=== PATIENT | female | born 1945 | race Caucasian/White ===

== ENCOUNTER → 2016-10-10 | Outpatient (CLI) | payer OTHER ==
[~2016-10-10] MED LIST: ADULT LOW DOSE81 MG PO; ANTIVERT25 MG PO; APAP/CODEINE ELI5 M1 PO; B COMPLEX-VITA1 EACH PO; CIPROFLOXACIN500 M3 PO; COLACE100 MG PO; EC-NAPROSYN500 MG PO; ENABLEX15 MG PO; GLUCOSAMINE1000 MG PO; HYDROCODONE-APA10 ML PO; LEVOTHYROXIN0.125 M1 PO; LEVOTHYROXIN0.137 M1 PO; LIPEX10 MG PO; LISINOPRIL10 MG PO; LOFIBRA160 MG PO; MULTIVITAMINS PO; PREDNISONE 20 M20 M1 PO; PRILOSEC40 MG PO; PROTEIN POWDER PO; PROTONIX40 M2 PO; PROVENTIL IH; PROZAC 20 MG20 M1 PO; SENNA S TABLET1 EACH PO; SYMBICORT160 MCG/4. INH; VICODIN 5-5001 EACH PO
== END ==
LOC: CAT 11:11
DX: Z13.6 Encounter for screening for cardiovascular disorders (principal)

== ENCOUNTER → 2016-11-08 | Outpatient (CLI) | payer OTHER ==
[~2016-11-08] VITALS: Ht 167.6 cm; Wt 108.9 kg
[~2016-11-08] MED LIST changes: +FISH OIL 1,001000 M2 PO; +LEVOTHYROXINE 0.15MG PO; +LISINOPRIL20 MG PO; +VITAMIN C500 M1 PO; +ZANTAC 150MG T150 MG PO
--- NOTE | ~2016-11-08 | P ---
[facility] [place] [address] PROCEDURE REPORT Name: ABELARDO DURANT Room #: REG [facility].#: [id number] Admission: 11/08/16 Attend Phys: Jarrod Degroot Discharge: Date of : 45 Report #: [id number] THIS REPORT FOR: //name// CC: Jarrod Collins MD DATE OF SERVICE: 11/08/2016 PROCEDURE PERFORMED: Colonoscopy with biopsies. HISTORY OF PRESENT ILLNESS: The patient is a 71-year-old female with recent history of diarrhea. She reported one episode of bright red blood per rectum. Her last colonoscopy was performed in 2010, which showed small internal hemorrhoids, but otherwise normal at that time. DESCRIPTION OF PROCEDURE: The risks and benefits of the procedure were explained to the patient, those risks including but not limited to bleeding, perforation, the risk of sedation. She understood these risks and gave informed consent. Sedation was given using propofol per anesthesia. Next, a digital rectal exam was initially performed, which was normal. Next, using a standard Fujinon colonoscope, the scope was placed in the patient's anus and advanced under direct vision to the cecum. The overall prep was good. The cecum and ileocecal valve were normal in appearance. The ascending, transverse, descending and sigmoid colon were all normal. The rectal mucosa was normal. On retroflexion, small nonbleeding internal hemorrhoids were again noted. Random biopsies of the colon were obtained today to rule out the possibility of microscopic colitis. The scope was then withdrawn and the procedure terminated. The patient tolerated the procedure well. IMPRESSION: 1. Small internal hemorrhoids. 2. Otherwise normal colonoscopy. RECOMMENDATIONS: 1. Await biopsy results. 2. I would recommend a trial of probiotics. Thank you for allowing me to participate in her care. <ELECTRONICALLY SIGNED> By: Jarrod Bryan MD 11/10/16 0818 [id number] Jarrod Bryan MD /nt
--- NOTE | ~2016-11-08 | S ---
[facility] [place] [address] SURGICAL PATH RPT PROCEDURE Name: JESENIA DURANT Room #: REG [facility].#: [id number] Admission: 11/08/16 Date of : 45 Discharge: Report #: [id number] Path Case #: [id number] PATHOLOGY REPORT COLLECTION DATE: 11/08/2016 RECEIVED DATE: 11/08/2016 SUBMITTING PHYS: Dr. Jarrod Bryan OTHER PHYS: Dr. Viraj Collins SPECIMEN(S) RECEIVED: A.Bx of distal esophagus B.Bx of random colon * * * * * * * * * * * * FINAL DIAGNOSIS: A. Gastroesophageal mucosa, distal esophagus, endoscopic biopsy: - Gastric cardia-type mucosa with moderate chronic inflammation and reactive changes. - Squamous mucosa with mild esophagitis. - Negative for intestinal metaplasia or dysplasia. B. Large intestine, random colon, endoscopic biopsy: - Active colitis with a mild increase in intraepithelial lymphocytes (please see comment). - Negative for dysplasia or malignancy. COMMENT: B. Examination shows acute cryptitis along with scattered foci of surface epithelial inflammation. The crypts as well as the surface epithelium show scattered foci of increased intraepithelial lymphocytes throughout. The lamina propria cellularity is mildly increased and it includes plasma cells, lymphocytes as well as numerous eosinophils. Although the intraepithelial lymphocytes are not significantly increased, an evolving process cannot be excluded. Based on the morphology, the differential diagnosis includes mild active colitis including infectious type, diverticulitis, early inflammatory bowel disease, in addition to an evolving lymphocytic colitis. Please correlate clinically with endoscopic findings and follow up, as indicated. Co-review: Part B only by Dr. Lisette Berger. (IUV:mml; d/t: 11/10/2016) PATHOLOGIST: Elvia Correa M.D. REPORT ELECTRONICALLY SIGNED BY: Elvia Correa M.D. DATE/TIME: 11/10/2016 14:59 * * * * * * * * * * * * [address] [address] SURGICAL PATH RPT PROCEDURE Name: JESENIA DURANT Room #: REG [facility]#: [id number] Admission: 11/08/16 Date of : 45 Discharge: Report #: [id number] Path Case #: [id number] GROSS PATHOLOGY: A. Received in formalin labeled "Jesenia uDrant Dunia, BX of distal esophagus," are 2 segments of sutton soft tissue measuring 0.5 x 0.2 x 0.2 cm in aggregate dimensions and ranging from 0.2 to 0.3 cm in maximum dimension. The specimen is submitted entirely in cassette A1. B. Received in formalin labeled "Esdras Jesenia Sue, BX of random colon," are 5 segments of sutton soft tissue measuring 2.5 x 0.2 x 0.2 cm in aggregate dimensions and ranging from 0.4 to 0.6 cm in maximum dimension. The specimen is submitted entirely in cassette B1. (JARON; 11/09/2016) CLINICAL HISTORY: History of diarrhea, reflux INITIAL CPT CODE(S): A; 61967 B; 72957 Professional services performed by [facility] at [facility] [address], [place] [address] Technical services performed by [facility] at [address] [place] [address], [address], [place] [address]. [facility] [address] [place] [address] PHONE: [phone] DIRECTOR: Janes Rosa M.D. * * * END OF REPORT * * *
--- NOTE | ~2016-11-08 | P ---
[facility] [place] [address] [place] [address] PROCEDURE REPORT Name: ABELARDO DURANT Room #: REG [facility].#: [id number] Admission: 11/08/16 Attend Phys: Jarrod Degroot Discharge: Date of : 45 Report #: [id number] THIS REPORT FOR: //name// CC: Jarrod Collins MD DATE OF SERVICE: 11/08/2016 PROCEDURE PERFORMED: Upper endoscopy with biopsies. HISTORY OF PRESENT ILLNESS: The patient is a 71-year-old female who complains of increased heartburn symptoms. She takes Zantac approximately 1-2 times per week. She does report a small amount of dysphagia at times. She has had a previous gastric sleeve surgery. No previous history of upper endoscopy. DESCRIPTION OF PROCEDURE: The risks and benefits of the procedure were explained to the patient, those risks including but not limited to bleeding, perforation, the risk of sedation. She understood these risks and gave informed consent. Sedation was given using propofol per anesthesia. Next, using a standard Composerightn upper endoscope, the scope was placed in the patient's mouth and advanced under direct vision through the esophagus, stomach and into the second portion of the duodenum. The larynx was normal in appearance. The upper and mid esophagus was normal in appearance. In the distal esophagus, there was grade B erosive esophagitis, also a small pink mucosal tongue was noted. Biopsies were obtained to rule out H. pylori. Upon entering the stomach, obvious surgical changes were noted, in that the stomach was much thinner in general throughout consistent with gastric sleeve. Gastric antrum was more normal in appearance. The pylorus was normal and patent. The duodenal bulb, first and second portion were all normal. The scope was then withdrawn and the procedure terminated. The patient tolerated the procedure well. IMPRESSION: 1. Grade B erosive esophagitis, I did not dilate due to esophagitis today. 2. 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 3. Surgical changes consistent with gastric sleeve surgery noted. 4. Otherwise, normal upper endoscopy. RECOMMENDATIONS: 1. Await biopsy results. 2. Recommend daily PPI therapy. 3. If dysphagia continues in the future, could dilate after PPI therapy. [facility] [address] [place] [address] PROCEDURE REPORT Name: ABELARDO DURANT Room #: REG [facility].#: [id number] Admission: 11/08/16 Attend Phys: Jarrod Degroot Discharge: Date of : 45 Report #: [id number] Thank you for allowing me to participate in her care. <ELECTRONICALLY SIGNED> By: Jarrod Bryan MD 11/10/16 0818 [id number] Jarrod Bryan MD /nt
== END ==
LOC: GI 07:29 → EDSTATUS 11:13 → GI 13:29
DX: K62.5 Hemorrhage of anus and rectum (principal); K64.8 Other hemorrhoids; R13.10 Dysphagia, unspecified; K22.10 Ulcer of esophagus without bleeding; F32.9 Major depressive disorder, single episode, unspecified
CPT/HCPCS: 62110; 62900

== ENCOUNTER → 2017-04-18 | Outpatient (CLI) | payer OTHER | LOC: RAD 01:18 | DX: Z12.31 Encounter for screening mammogram for malignant neoplasm of breast (principal) ==

== ENCOUNTER → 2018-02-12 | Outpatient (CLI) | payer OTHER | LOC: ULTRA 10:47 | DX: E04.1 Nontoxic single thyroid nodule (principal); I10 Essential (primary) hypertension; E78.5 Hyperlipidemia, unspecified; J45.909 Unspecified asthma, uncomplicated; G47.30 Sleep apnea, unspecified; K21.9 Gastro-esophageal reflux disease without esophagitis ==

== ENCOUNTER → 2018-07-01 | Outpatient (CLI) | payer OTHER | LOC: RAD 03:25 | DX: Z12.31 Encounter for screening mammogram for malignant neoplasm of breast (principal) ==

== ENCOUNTER → 2019-02-07 | Outpatient (CLI) | payer OTHER | LOC: CAT 09:41 | DX: Z13.6 Encounter for screening for cardiovascular disorders (principal); E78.00 Pure hypercholesterolemia, unspecified; I25.10 Atherosclerotic heart disease of native coronary artery without angina pectoris ==

== ENCOUNTER → 2019-03-26 | Outpatient (CLI) | payer OTHER | LOC: CAT 09:05 | DX: J34.89 Other specified disorders of nose and nasal sinuses (principal); M25.78 Osteophyte, vertebrae; M48.02 Spinal stenosis, cervical region; M47.812 Spondylosis without myelopathy or radiculopathy, cervical region ==

== ENCOUNTER → 2019-07-09 | Outpatient (CLI) | payer OTHER | LOC: RAD 06:38 | DX: Z12.31 Encounter for screening mammogram for malignant neoplasm of breast (principal) ==

== ENCOUNTER → 2020-07-27 | Outpatient (CLI) | payer OTHER | LOC: BC 07-26 11:46 | PROVIDERS: ATTEND Family Medicine | DX: Z12.31 Encounter for screening mammogram for malignant neoplasm of breast (principal) ==

== ENCOUNTER 2020-10-14 09:18 | Emergency (ER) | payer OTHER ==
[~2020-10-14] VITALS: Ht 167.6 cm; Wt 113.4 kg
[2020-10-14] MEDS ORDERED: NORVASC5 MG PO (09:28)
[2020-10-14] MEDS ORDERED: ROSUVASTATIN CAL5 MG PO (09:29)
[2020-10-14] MEDS ORDERED: OMEPRAZOLE 20 M20 M1 PO (09:30)
[2020-10-14 09:59] LABS: ABSOLUTE NEUTROPHILS 3.2 thou/uL (1.4-8.2); BASOPHILS 1.3 % (0.0-2.0); HEMOGLOBIN 13.3 gm/dL (12.0-15.0); LYMPHOCYTES 28.4 % (24.0-44.0); MCH 27.6 pg (26.0-34.0); MCHC 33.2 g/dL (28.0-37.0); MCV 83.1 fL (80.0-100.0); PLATELET COUNT 260 thou/uL (150-400); POLYS 56.3 % (36.0-66.0); RBC 4.81 mil/uL (4.20-5.00); RDW 15.2 % (10.5-14.5); WBC 5.7 thou/uL (4.0-11.0)
[2020-10-14 10:08] LABS: ANION GAP 13 mmol/L (7-16); BUN 10 mg/dL (7-18); CALCIUM 8.8 mg/dL (8.5-10.1); CHLORIDE 106 mmol/L (98-107); CO2 25 mmol/L (21-32); CREATININE 0.9 mg/dL (0.6-1.0); GLUCOSE 96 mg/dL (74-106); POTASSIUM 3.1 mmol/L (3.5-5.1); SODIUM 144 mmol/L (136-145)
[2020-10-14 10:19] LABS: TROPONIN-I <0.06 ng/mL (<0.06)
[2020-10-14 11:04] LABS: URINE BILIRUBIN NEGATIVE (Negative); URINE BLOOD NEGATIVE (Negative); URINE CLARITY SL CLOUDY; URINE COLOR YELLOW; URINE GLUCOSE-RANDOM* NEGATIVE (Negative); URINE KETONES NEGATIVE (Negative); URINE NITRITE-REFLEX NEGATIVE (Negative); URINE PROTEIN (DIPSTICK) NEGATIVE (Negative); URINE SPECIFIC GRAVITY 1.015 (1.005-1.035)
[2020-10-14 11:24] LABS: URINE LEUKOCYTES-REFLEX 2+ (Negative)
[2020-10-14 11:30] LABS: CASTS None Seen /LPF (None Seen); CRYSTALS None Seen /LPF (None Seen); SQUAMOUS 0-3 Few /LPF (0-3); URINE RBC None Seen /HPF (NONE SEEN); URINE WBC-REFLEX >25 Many /HPF (0-5)
--- NOTE | 2020-10-14 12:26 | EKG ---
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: HANK : 1945 Requested By: Lakisha Stevens Order Number: [id number] MD: Don Collins Measurements Intervals Grants Rate: 77 P: 18 NM: 162 QRS: -18 QRSD: 104 T: 15 QT: 411 QTc: 466 Interpretive Statements Sinus rhythm Probable left atrial enlargement Borderline left axis deviation Abnormal R-wave progression, early transition Compared to ECG 02/01/2016 11:04:32 No significant changes Electronically Signed On 10-14-2020 12:26:15 CDT by Don Collins [email or web address] <ELECTRONICALLY SIGNED> By: Don Collins MD, [facility] 10/14/20 1226 6 6 Don Collins MD, FACC /EPI
[2020-10-14] MEDS ORDERED: TOPROL XL25 MG PO (12:30)
[2020-10-14] MEDS ORDERED: KEFLEX125 MG/5 M PO (13:15)
[2020-10-14 13:33] VITALS: BP 149/69
[2020-10-14] MEDS ORDERED: CEPHALEXIN500 MG PO (13:38)
== END 2020-10-14 14:01 | disposition home or self-care (01) ==
LOC: ER 09:18
PROVIDERS: Student in an Organized Health Care Education/Training Program
DX: R00.2 Palpitations (principal); E87.6 Hypokalemia; N39.0 Urinary tract infection, site not specified; I10 Essential (primary) hypertension; E78.00 Pure hypercholesterolemia, unspecified; J45.909 Unspecified asthma, uncomplicated; Z88.5 Allergy status to narcotic agent; Z79.899 Other long term (current) drug therapy; Z90.710 Acquired absence of both cervix and uterus; Z90.49 Acquired absence of other specified parts of digestive tract

== ENCOUNTER → 2020-10-21 | Outpatient (CLI) | payer OTHER ==
[~2020-10-21] MED LIST changes: +CEPHALEXIN500 MG PO; +KEFLEX125 MG/5 M PO; +NORVASC5 MG PO; +OMEPRAZOLE 20 M20 M1 PO; +ROSUVASTATIN CAL5 MG PO; +TOPROL XL25 MG PO
== END ==
LOC: SJCVCIMAG 11:39
PROVIDERS: ATTEND Internal Medicine Cardiovascular Disease
DX: R94.31 Abnormal electrocardiogram [ECG] [EKG] (principal); I08.8 Other rheumatic multiple valve diseases; R00.1 Bradycardia, unspecified; R06.00 Dyspnea, unspecified; R07.9 Chest pain, unspecified; I10 Essential (primary) hypertension; E78.00 Pure hypercholesterolemia, unspecified; R00.2 Palpitations; E03.9 Hypothyroidism, unspecified; E78.5 Hyperlipidemia, unspecified; G47.30 Sleep apnea, unspecified; Z79.82 Long term (current) use of aspirin; Z79.899 Other long term (current) drug therapy; Z88.1 Allergy status to other antibiotic agents

== ENCOUNTER → 2020-11-03 | Outpatient (CLI) | payer OTHER | LOC: SJCVCIMAG 08:52 | PROVIDERS: ATTEND Internal Medicine Cardiovascular Disease | DX: I48.91 Unspecified atrial fibrillation (principal); R00.1 Bradycardia, unspecified; R06.00 Dyspnea, unspecified; R00.2 Palpitations; E78.5 Hyperlipidemia, unspecified; I10 Essential (primary) hypertension; Z79.82 Long term (current) use of aspirin; Z79.899 Other long term (current) drug therapy; Z88.5 Allergy status to narcotic agent; Z88.8 Allergy status to other drugs, medicaments and biological substances ==

== ENCOUNTER → 2021-03-29 | Outpatient (CLI) | payer OTHER | LOC: RAD 14:05 | PROVIDERS: ATTEND Nurse Practitioner | DX: S82.892A Other fracture of left lower leg, initial encounter for closed fracture (principal); M25.511 Pain in right shoulder; X58.XXXA Exposure to other specified factors, initial encounter; Y93.89 Activity, other specified; Y92.89 Other specified places as the place of occurrence of the external cause; Y99.8 Other external cause status ==

== ENCOUNTER → 2021-04-06 | Outpatient (CLI) | payer OTHER | LOC: MRI 07:34 | PROVIDERS: ATTEND Family Medicine | DX: M19.011 Primary osteoarthritis, right shoulder (principal); M65.811 Other synovitis and tenosynovitis, right shoulder; M77.8 Other enthesopathies, not elsewhere classified; G89.29 Other chronic pain ==

== ENCOUNTER → 2021-05-02 | Outpatient (CLI) | payer OTHER | LOC: SJCVC 13:31 | PROVIDERS: ATTEND Internal Medicine Cardiovascular Disease | DX: E78.00 Pure hypercholesterolemia, unspecified (principal); I10 Essential (primary) hypertension; R94.31 Abnormal electrocardiogram [ECG] [EKG]; I25.10 Atherosclerotic heart disease of native coronary artery without angina pectoris; E03.9 Hypothyroidism, unspecified; I38 Endocarditis, valve unspecified; E78.5 Hyperlipidemia, unspecified; R00.2 Palpitations; Z79.82 Long term (current) use of aspirin; Z79.899 Other long term (current) drug therapy; Z88.8 Allergy status to other drugs, medicaments and biological substances ==

== ENCOUNTER → 2021-06-27 | Outpatient (CLI) | payer OTHER | LOC: SJCVC 13:33 | PROVIDERS: ATTEND Internal Medicine Cardiovascular Disease | DX: R93.1 Abnormal findings on diagnostic imaging of heart and coronary circulation (principal); I10 Essential (primary) hypertension; E78.00 Pure hypercholesterolemia, unspecified; I38 Endocarditis, valve unspecified; E78.5 Hyperlipidemia, unspecified; E03.9 Hypothyroidism, unspecified; G47.30 Sleep apnea, unspecified; Z79.82 Long term (current) use of aspirin; Z79.899 Other long term (current) drug therapy; Z88.5 Allergy status to narcotic agent; Z88.8 Allergy status to other drugs, medicaments and biological substances ==